=== PATIENT | female | born 1955 | race Caucasian/White ===

== ENCOUNTER 2018-12-14 05:41 | Day surgery (SDC) | payer OTHER ==
[~2018-12-14] VITALS: Ht 175.3 cm; Wt 62.1 kg
[~2018-12-14 05:41] MED LIST: FISH OIL 1,001000 M2 PO; GYNODIOL0.5 MG PO; PROBIOTIC1 EAC1 PO; STOOL SOFTENER100 MG PO; VITAMIN B-COMP1 EAC4 PO; VITAMIN D2000 UNIT PO
[2018-12-14 08:02] VITALS: BP 110/66; BP 122/81
[2018-12-14 08:10] VITALS: BP 110/66
--- NOTE | 2019-01-23 10:09 | O ---
[facility] [place] [address] OPERATIVE REPORT Name: MERVAT SWANSON Room #: [facility] Melissa.#: [id number] Admission: 12/14/18 ������������������ Attend Phys: Rodríguez Tyler Discharge: 12/14/18 ������������������ Date of : 59 Report #: [id number] THIS REPORT FOR: //name// CC: Rodríguez Kaufman DATE OF SERVICE: 12/14/2018 PREOPERATIVE DIAGNOSES: Left knee pain, lateral meniscus tear, bucket handle type, chondromalacia. POSTOPERATIVE DIAGNOSES: Left knee pain, bucket handle tear of lateral meniscus, effusion, chondromalacia of patella, grade 3; chondromalacia of lateral femoral condyle, grade 3; lateral tibial plateau, grade 3 and medial femoral condyle, grade 3. PROCEDURE PERFORMED: Left knee arthroscopy, partial lateral meniscectomy, chondroplasty of lateral and patellofemoral compartments. SURGEON: Rodríguez Chang M.D. BANK COMPLIANCE OFFICER: Nikkie Winslow PA-C. ANESTHESIA: General per LMA. FLUIDS: 800 mL of crystalloid. ESTIMATED BLOOD LOSS: Less than 5 mL. TOURNIQUET TIME: Approximately 60 minutes at 300 mmHg. DESCRIPTION OF PROCEDURE: After proper identification of the patient and the operative site in the preoperative holding area, the operative site was signed by myself. Prophylactic antibiotics were given. The patient elected to receive a general anesthetic. After induction of satisfactory general anesthetic, the patient was brought back. The patient's left knee was examined. It was ligamentously stable. Mild effusion was noted. Tourniquet was applied to the upper thigh. Limb was placed in an arthroscopic leg barros and sterilely prepped and draped in the usual manner. The limb was elevated and exsanguinated with an Esmarch. Tourniquet was inflated to 300 mmHg. Superomedial portal was created for inflow purposes. Joint was inflated by gravity inflow with normal saline. An anterolateral and then an anteromedial portal were created using a spinal needle for localization. Examination of the suprapatellar pouch, medial and lateral gutters revealed some mild intra-articular synovitis. Patellofemoral articulation revealed some diffuse fibrillation and chondral thinning on both the medial patellar facet and lateral patellar facet. [address] [address] OPERATIVE REPORT Name: MERVAT SWANSON Room #: [facility] MFlavio.#: [id number] Admission: 12/14/18 ������������������ Attend Phys: Rodríguez Tyler Discharge: 12/14/18 ������������������ Date of : 59 Report #: [id number] Fibrillated tissue and any small loose chondral flaps were carefully debrided with a motorized shaver. Approximately 50% of the chondral thickness appeared to have been involved. Trochlear surface otherwise appeared intact. Medial compartment demonstrated some very mild fraying and thinning of the chondral surface more medially on the medial femoral condyle as noted in image ____. Medial meniscus was stable to probing. Some mild inner margin fraying was noted on the more lateral aspect of the medial femoral condyle. Examination of the intercondylar notch revealed intact anterior and posterior cruciate ligaments. The lateral compartment demonstrated a displaced bucket handle tear of the lateral meniscus that started at the root attachment posteriorly and extending into the midbody. Combination of hand and motorized instrumentation was used to perform a partial medial meniscectomy. This tear in essence involved the entire posterior horn and more posterior aspect of the midbody. This was tapered into the remaining meniscus, which was otherwise stable. Diffuse chondral changes were noted in the lateral tibial plateau, with greater than 50% chondral thinning noted in the more central aspect of the lateral tibial plateau more posteriorly. Surrounding fibrillated tissue was carefully debrided. No exposed bone was noted, but this was greater than 50% of the chondral thickness. The knee was thoroughly irrigated with normal saline. Portals closed with simple nylon stitch. 20 mL of 0.2% Naropin was injected around the skin incision into the knee joint to aid in postoperative pain control. Sterile compressive dressing was applied. The patient was awakened and transferred to the recovery room in stable condition. ��������������������������������������������� <ELECTRONICALLY SIGNED> ���������������������������������������� By: Rodríguez Chang MD ��������������������������������������������� 01/23/19 [id number] Rodríguez Chang MD /nt
== END 2018-12-14 09:00 | disposition home or self-care (01) ==
LOC: TBA 05:41 → OR 05:41 → TBA 05:42 → OR 09:00
DX: S83.252A Bucket-handle tear of lateral meniscus, current injury, left knee, initial encounter (principal); M94.262 Chondromalacia, left knee; M25.462 Effusion, left knee; Z98.890 Other specified postprocedural states; Z90.710 Acquired absence of both cervix and uterus; Z79.899 Other long term (current) drug therapy; X58.XXXA Exposure to other specified factors, initial encounter; Y93.89 Activity, other specified; Y92.89 Other specified places as the place of occurrence of the external cause; Y99.8 Other external cause status
CPT/HCPCS: 50010; 50101; 50405; 51038; 54170; 56526; 57103; 57180; 62110; 62900; 70005